=== PATIENT | male | born 1990 | race Two or more races ===

== ENCOUNTER 2017-07-18 20:34 | Emergency (ER) | payer OTHER ==
[~2017-07-18] VITALS: Ht 165.1 cm; Wt 83.5 kg
--- NOTE | 2017-07-18 20:45 | NUR ---
PATIENT BROUGHT IN BY [facility] FOR C/O LLQ ABDOMINAL PAIN AND CONSTIPATION X1 WEEK, PT IS ALERT, ORIENTED X 4, NO RESP DISTRESS NOTED OR REPORTED UPON ASSESSMENT...MD AT BEDSIDE...
[2017-07-18] MEDS ORDERED: CEPH-570 PO (20:51)
[2017-07-18] MEDS ORDERED: PANT40TA4 PO (20:51)
[2017-07-18] MEDS ORDERED: WARF6TAB23 PO (20:51)
[2017-07-18] MEDS ORDERED: METO-295 PO (20:51)
[2017-07-18] MEDS ORDERED: LIDOCAINE 2% (UROJET) 10 ML JELLY MM ONE (21:15)
--- NOTE | 2017-07-18 21:30 | NUR ---
olivo not utilized due to pt able to provide urine sample...
[2017-07-18 22:15] LABS: CARBON DIOXIDE 30 mmol/L (21-32); CHLORIDE 103 mmol/L (98-107); CREATININE 0.7 mg/dL (0.6-1.3); GLUCOSE 90 mg/dL (74-106); POTASSIUM 3.5 mmol/L (3.5-5.1); UREA NITROGEN, BLOOD 9 mg/dL (7-18)
[2017-07-18 22:16] LABS: BASOPHILS % (AUTO) 0.7 % (0.0-2.0); EOSINOPHILS # (AUTO) 0.1 K/uL (0.0-0.7); EOSINOPHILS % (AUTO) 1.3 % (0.0-7.0); HEMOGLOBIN 14.6 G/DL (14.0-18.0); LYMPHOCYTES # (AUTO) 1.9 K/UL (0.8-4.8); LYMPHOCYTES % (AUTO) 35.5 % (20.5-51.5); MEAN CORPUSCULAR HGB CONC 33 g/dL (32.0-37.0); MEAN CORPUSCULAR VOLUME 87.2 FL (82.0-92.0); MONOCYTES # (AUTO) 0.6 K/UL (0.1-1.30); MONOCYTES % (AUTO) 11.7 % (0.0-11.0); NEUTROPHILS # (AUTO) 2.6 K/UL (1.8-8.9); NEUTROPHILS % (AUTO) 50.8 % (38.5-71.5); PLATELET COUNT (AUTO) 220 K/UL (150-450); RED BLOOD CELL COUNT(AUTO) 5.05 MIL/UL (4.7-6.1); WHITE BLOOD COUNT (AUTO) 5.2 K/UL (4.0-11.2)
[2017-07-18 22:37] LABS: *BILIRUBIN,URIN NEGATIVE (NEGATIVE); *BLOOD, URINE NEGATIVE (NEGATIVE); *CLARITY,URINE CLEAR (CLEAR); *COLOR,URINE YELLOW (YELLOW); *KETONES,URINE 1+ (NEGATIVE); *PROTEIN,URINE NEGATIVE (NEGATIVE); *UROBILINOGEN,URINE 0.2 E.U./dl (NORMAL); LEUKOCYTE ESTERASE ,URINE NEGATIVE (NEGATIVE); NITRITE, URINE NEGATIVE (NEGATIVE); PH,URINE 7.5 (5.0-8.0); UGLUCOSE NEGATIVE (NEGATIVE)
[2017-07-18] MEDS ORDERED: NORMAL SALINE FLUSH 10 ML DISP.SYRIN ONE (22:53)
[2017-07-18] MEDS ORDERED: IV NORMAL SALINE 250 ML IV ONE (22:53)
[2017-07-18] MEDS ORDERED: IOHEXOL 300MG/ML 100 ML INFUS..BTL ONE (22:53)
[2017-07-18 22:54] LABS: ALANINE AMINOTRANSFERASE 22 U/L (16-63); ALKALINE PHOSPHATASE 94 U/L (50-136); BILIRUBIN,DIRECT 0.1 mg/dL (0.0-0.2); BILIRUBIN,TOTAL 0.3 mg/dL (0.2-1.0); LIPASE 132 U/L (73-393); TOTAL PROTEIN, SERUM 8.3 g/dL (6.4-8.2)
[2017-07-18 23:02] LABS: BACTERIA,URINE FEW /HPF (NONE SEEN); RBC,URINE 0-3 /HPF (0-3); SQUAMOUS EPITHELIAL CELL,UR FEW /HPF (NONE SEEN)
[2017-07-18 23:03] LABS: ASPARTATE AMINOTRANSFERASE 16 U/L (15-37)
[2017-07-18] MEDS ORDERED: IV NORMAL SALINE 1000 ML BAG IV ONE (23:45)
--- NOTE | 2017-07-19 00:56 | NUR ---
Patient discharged to home in stable conditon. Written and verbal after care instructions given. Patient verbalizes understanding of instructions. pt used wheelchair to ambulate to vechicle, belonging and family member at side..
[2017-07-19 01:06] VITALS: BP 115/86
== END 2017-07-19 01:11 | disposition home or self-care (01) ==
LOC: ER 20:39
DX: R10.32 Left lower quadrant pain (principal); G82.20 Paraplegia, unspecified; R06.00 Dyspnea, unspecified; F41.9 Anxiety disorder, unspecified; Z79.01 Long term (current) use of anticoagulants; Z86.718 Personal history of other venous thrombosis and embolism
CPT/HCPCS: 36415; 71010; 83690; 85025; 85730; 87086; 93005; A4663; J7030